=== PATIENT | female | born 1990 | race Two or more races ===

== ENCOUNTER 2024-05-24 11:34 | Emergency (ER) | payer SELFPAY ==
[2024-05-24 11:35] VITALS: BMI 31.6
--- NOTE | 2024-05-24 11:58 | EDNOTE_ITS ---
ED Abdominal Pain RME/HPI General Chief Complaint: Abdominal Pain Stated complaint: UPPER ABD PAIN WITH VOMITING SINCE THIS AM Time seen by provider: 05/24/24 11:52 Arrival date/time: 05/24/24 11:34 RME / HPI RME / HPI narrative: Patient is a 34 year old female presenting to the ED complaining of nausea,vomiting and abdominal pain sice 0200 this morning when it woke her out of her sleep. Reports accompanied dizziness. Denies fevers, chills, diarrhea, constipation, urinary symptoms. Patient states she was able to have diner last night with no problems. She did take Tylenol and Pepto however vomit it up. No further history Related Data Previous Rx's ?Medication ?Instructions ?Recorded pantoprazole 40 mg tablet,delayed 40 mg PO QDAY #20 tabs 05/24/24 release (Protonix) Allergies Allergy/AdvReac Type Severity Reaction Status Date / Time No Known Allergies Allergy Verified 05/24/24 11:38 Review of Systems Review of Systems Narrative Review of Systems: Gen: No fever, no chills, no weight loss EYES: No discharge, no visual changes, no pain HEENT: No ear pain, no congestion, no sore throat PULM: No shortness of breath, no cough, no congestion CV: No chest pain, no dyspnea on exertion, no palpitations GI: +ausea,vomiting, pain. no diarrhea no constipation : No frequency, no urgency, no dysuria Musc/skel: No joint pain, no back pain Skin: No rash Psyc: No hallucinations, no depression Heme/Lymph: No easy bleeding or bruising tendencies Neuro: +dizzy. No weakness, no headache Past Medical History Social History SMOKING STATUS: Never smoker ED Exam Narrative Physical exam: GEN. APPEARANCE: The patient is alert awake oriented X-3 in minimal distress, lying down comfortably, does not look ill/toxic. Patient has good eye contact. Patient is cooperative. VITALS: All vitals were reviewed and the pulse ox is []% on room air which is normal according to my interpretation. HEENT: Normocephalic, atraumatic. Pupils are equal and reactive. Oral mucosa is moist. Patent Nares NECK: Supple, nontender, no thyromegaly, no meningismus, no JVD, no step offs CHEST: Symmetrical, atraumatic, and with equal expansion , Nontender on palpation no deformity and no crepitus. CARDIOVASCULAR: Heart regular rhythm no murmur or gallop rub or extra beats. LUNGS: Clear to auscultation bilaterally with symmetrical chest rise. No laboring tachypnea or wheezing. No intercostal subcostal retraction. No rales and no rhonchi. ABDOMEN:mild epigastric tenderness, no RLQ tenderness, no rodriguez sign. Soft, flat, no guarding or rebound tenderness. There are no abnormal masses palpated. Active and normal bowel sounds. EXTREMITIES: Nontender. No edema. No cyanosis. Patient is able to move all 4 extremities well, with full ROM and good CSM. SKIN: Warm and dry, no jaundice or rashes noted. MUSCULOSKELETAL: No lubar or midline bony tenderness. There is no CVA tenderness. No paraspinal muscle spasm or tenderness. NEURO: Patient is ORTEGA x 4, Cranial nerves II through XII grossly intact. There is no focal neurologic deficits noted. GCS is 15, PNS and ASSEMBLER TYPE BAR AND SEGMENT appear grossly in tact. PSYCHIATRIC: Patient is in normal mood and affect, cooperative, no SI or HI or hallucinations. Course Quality Measures none Orders Category Date Time Status EKG (ED ONLY) *Do not use* NOW Care 05/24/24 14:10 Active EKG (ED Only) Stat Exams 05/24/24 14:10 Ordered CBC Stat Lab 05/24/24 13:27 Completed CMP [Comprehensive Metabolic Panel] Stat Lab 05/24/24 13:27 Completed HCG Qualitative,Urine Stat Lab 05/24/24 14:00 Ordered Lipase Stat Lab 05/24/24 13:27 Completed Dicyclomine [Bentyl] Med 05/24/24 13:19 Discontinued 10 mg PO X1 ONE Famotidine [Pepcid] Med 05/24/24 11:59 Discontinued 40 mg PO X1 ONE Ketorolac Inj [Toradol Inj] Med 05/24/24 13:19 Discontinued 30 mg IM X1 ONE Lidocaine 2% Viscous [Xylocaine 2% Viscous] Med 05/24/24 11:59 Discontinued 15 ml PO X1 ONE Ondansetron Odt [Zofran Odt] Med 05/24/24 11:59 Discontinued 4 mg PO X1 ONE mg Hyd/Al Hyd/Leonel Susp [Maalox Susp] Med 05/24/24 11:59 Discontinued 30 ml PO X1 ONE Reevaluation(s) Reevaluation #1: Patient states she is feeling better after medication. States she does not have a PCP therefore will send prescription for protonix Time: 12:45 Vital Signs Vital signs: Vital Signs Temperature 98.0 F 05/24/24 12:04 Pulse Rate 83 05/24/24 12:04 Respiratory Rate 15 05/24/24 12:04 Blood Pressure 134/71 H 05/24/24 12:04 Pulse Oximetry (%) 99 05/24/24 12:04 Oxygen Delivery Method Room Air 05/24/24 12:04 Abdominal Pain MDM Patient data External records reviewed:: [facility] previous records Clinical information provided by:: patient Social determinants that could affect healthcare access:: none Patient has the following chronic illnesses:: none How is presenting disease/condition affected by chronic disease/condition?: uneffected by Evaluation data The following diagnostics were reviewed and interpreted by me:: lab results and EKG tracing(s) (Sinus rhythm, rate 70, normal axis normal intervals, no acute St or T wave changes) Lab and/or radiology exams considered but not ordered:: none Interpretation Summary: see above Medications / Prescriptions Medications or Prescriptions considered but not ordered:: none Medication administrations:: Medication Administration History Discontinued Medications Al Hydrox/Mg Hydrox/Simethicone (Mg Hyd/Al Hyd/Leonel (Maalox Reg) Susp 30 Ml Udc) 30 ml PO X1 ONE Stop: 05/24/24 12:00 Last Admin: 05/24/24 12:28 Dose: 30 ml Documented By: BENEDICT Dicyclomine HCl (Dicyclomine 10 Mg Capsule) 10 mg PO X1 ONE Stop: 05/24/24 13:20 Last Admin: 05/24/24 13:26 Dose: 10 mg Documented By: JAMAL Famotidine (Famotidine 20 Mg Tablet) 40 mg PO X1 ONE Stop: 05/24/24 12:00 Last Admin: 05/24/24 12:29 Dose: 40 mg Documented By: BENEDICT Ketorolac Tromethamine (Ketorolac Inj 60 Mg/2 Ml Vial) 30 mg IM X1 ONE Stop: 05/24/24 13:20 Last Admin: 05/24/24 13:26 Dose: 30 mg Documented By: JAMAL Lidocaine HCl (Lidocaine Viscous 2% 15 Ml Udc) 15 ml PO X1 ONE Stop: 05/24/24 12:00 Last Admin: 05/24/24 12:28 Dose: 15 ml Documented By: BENEDICT Ondansetron HCl (Ondansetron Odt 4 Mg Tabrap) 4 mg PO X1 ONE; Protocol Stop: 05/24/24 12:00 Last Admin: 05/24/24 12:28 Dose: 4 mg Documented By: BENEDICT see above Consultations Consultation(s) initiated? (list below): No Diagnosis Differential diagnosis abdominal pain: other (gastritis, pancreatitis, cholelithiasis) Most likely diagnosis given after review of the tests above:: gastritis Admission Indicated Admission indicated?: not indicated Admission Request Was there a request for admission?: No Disposition Plan Disposition Plan: Discharge Discharge Attestation Discharge Attestation: The patient and all family members were given an opportunity to ask questions and understood the discharge instructions. Discharge instructions specifically effects, indications for sooner follow up or return to the emergency department, and the expected course of current diagnosis. Patient condition: Stable Discharge Plan Plan Patient Disposition: HOME (Self Care) Patient condition on transfer: Stable Prescriptions/Referrals Prescriptions/Med Rec: New pantoprazole [Protonix] 40 mg tablet,delayed release (DR/EC) 40 mg PO QDAY Qty: 20 0RF Referrals: [facility] [Provider Group] - In 1 week [facility] [Provider Group] - In 1 week [facility] [Outside] - In 1 week Problem List Clinical Impression: Gastritis Patient/Caregiver Discharge Instructions Education Materials: ED PEPTIC ULCER vs GASTRITIS Additional Instructions: Jon un seguimiento con roman m?dico de atenci?n primaria en 10 a 14 d?as para volver a realizar controles y posibles pruebas adicionales. Si no tiene un m?dico de atenci?n primaria, se le marcum proporcionado las direcciones de la cl?olivier. Puede regresar al departamento de emergencias antes si los s?ntomas empeoran o si surge alg?n problema nuevo o preocupante. Print Language: Liberian Stand Alone Forms: Mine Award Info., Patient Portal Info Letter
[2024-05-24 12:04] VITALS: BP 134/71; PULSE 83; RESP 15; TEMP 36.7; O2SAT 99
[2024-05-24] MEDS: MG HYD/AL HYD/SIME (Maalox Reg) SUSP 30 ML UDC PO (12:28)
[2024-05-24] MEDS: LIDOCAINE VISCOUS 2% 15 ML UDC PO (12:28)
[2024-05-24] MEDS: ONDANSETRON ODT 4 MG TABRAP PO (12:28)
[2024-05-24] MEDS: FAMOTIDINE 20 MG TABLET 40 MG PO (12:29)
[2024-05-24] MEDS: KETOROLAC INJ 60 MG/2 ML VIAL 30 MG IM (13:26)
[2024-05-24] MEDS: DICYCLOMINE 10 MG CAPSULE PO (13:26)
[2024-05-24 13:51] LABS: Basophils % (Auto) 0 % (0-2.5); Eosinophils % (Auto) 0 % (0-10); Hematocrit 35.4 % (36.0-46.0); Hemoglobin 12.4 g/dL (12.0-16.0); Immature Granulocytes % (Auto) 0 % (0-0); Immature Granulocytes Auto 0.03 Thou/mm3 (0.00-0.00); Lymphocytes % (Auto) 9 % (10-50); Mean Corpuscular Hemoglobin 29.2 pg (25.0-35.0); Mean Corpuscular Volume 84 fL (80-100); Monocytes # (Auto) 0.2 Thou/mm3 (0.0-0.8); Monocytes % (Auto) 2 % (0-12); Neutrophils # (Auto) 9.7 Thou/mm3 (1.8-7.7); Neutrophils % (Auto) 89 % (37-80); Nucleated Red Blood Cell % 0 /100 WBC (0); Platelet Count 262 Thou/mm3 (140-440); RDW Standard Deviation 39.7 fL (36.4-46.3); Red Blood Count 4.24 Miln/mm3 (4.00-5.20); White Blood Count 10.9 Thou/mm3 (3.6-11.0)
[2024-05-24 14:01] LABS: Alanine Aminotransferase 62 U/L (10-49); Albumin, Serum 5.1 gm/dL (3.5-5.0); Albumin/Globulin Ratio 1.7 (1.2-2.2); Alkaline Phosphatase 76 U/L (46-116); Anion Gap 11 (7-16); Aspartate Amino Transferase 37 U/L (0-34); BUN/Creatinine Ratio 10 Ratio (12-20); Bilirubin,Total 0.6 mg/dL (0.3-1.2); Blood Urea Nitrogen < 5 mg/dL (9-23); Calcium 9.6 mg/dL (8.3-10.6); Calcium (Corrected) 9.6 mg/dL (8.5-10.1); Carbon Dioxide 21.5 mMol/L (20.0-31.0); Chloride 102 mMol/L (98-107); Creatinine (Component) 0.5 mg/dL (0.6-1.3); Estimated Creatinine Clearance 169.3 mL/min (>60); Glucose 97 mg/dL (74-106); Lipase 32 U/L (12-53); Osmolality,Calculated 265 (275-295); Potassium 3.6 mMol/L (3.4-5.1); Sodium 134 mMol/L (136-145); Total Protein 8.1 gm/dL (5.7-8.2); eGFR > 60 See Note
--- NOTE | 2024-05-24 14:10 | EKG_ITS ---
[facility] Test Date: 2024-05-24 Pat Name: MARIAH ROMO Department: Room: - Gender: Female [employer]er: : 1990 Requested By: Bay Ray Order Number: [id number] Reading MD: Bay Ray Measurements Intervals [place] Rate: 70 P: 34 SD: 153 QRS: 51 QRSD: 80 T: 54 QT: 406 QTc: 440 Interpretive Statements SINUS RHYTHM No previous ECG available for comparison /store/S0/[id number]
[2024-05-24 14:11] VITALS: BP 119/77; PULSE 77; RESP 20; TEMP 37.7; O2SAT 100
[2024-05-24 15:20] LABS: HCG Qualitative,Urine Negative
--- NOTE | 2024-05-24 15:48 | PC.NURSE ---
Patient states pain 9/10. Informed ER provider and received verbal order for 5mg morphine IM.
[2024-05-24] MEDS: MORPHINE SULF INJ 10 MG/ML VIAL 5 MG IM (15:59)
== END 2024-05-24 16:34 | disposition home or self-care (01) ==
PROVIDERS: Emergency Provider Emergency Medicine
DX: K29.70 Gastritis, unspecified, without bleeding (principal)
CPT/HCPCS: 36415; 80053; 81025; 83690; 85025; 93005; 96372; 99284; J1885; J2270; J3490; Q0162; A9270